=== PATIENT | male | born 1945 | race Asian ===

== ENCOUNTER → 2016-11-27 | Outpatient (CLI) | payer MEDICARE ==
[2016-11-27 17:24] LABS: Hepatitis B Surface Ag Index 0.07
[2016-11-27 17:29] LABS: Hepatitis B Core IgM Index 0.04
[2016-11-27 17:41] LABS: Hepatitis C Virus IgG Ab Negative (Negative); Hepatitis C Virus IgG Index 0.04
== END | disposition home or self-care (01) ==
LOC: LABWHC1 16:19
PROVIDERS: ATTEND Internal Medicine
DX: R74.8 Abnormal levels of other serum enzymes (principal)
CPT/HCPCS: 36415; 80074

== ENCOUNTER → 2017-05-22 | Outpatient (CLI) | payer MEDICARE ==
[2017-05-22 10:16] LABS: Basophils % (A) 1 %; CH 31.7; CHCM 33.5; Eosinophils # (A) 0.1 k/uL (0-0.7); Eosinophils % (A) 2 %; HCT 41.6 % (39.0-53.0); HDW 2.27; HGB 14.2 gm/dL (13.0-17.5); Luc % (Auto) 3; Lymphocytes # (A) 2.3 k/uL (1.0-4.8); Lymphocytes % (A) 40 %; MCH 32.5 pg (25.0-35.0); MCHC 34.2 g/dL (31.0-37.0); MCV 94.9 fL (80.0-100.0); Mean Platelet Volume 6.9; Monocytes # (A) 0.4 k/uL (0-1.0); Monocytes % (A) 7 %; Neutrophils # (A) 2.8 k/uL (1.3-7.7); Neutrophils % (A) 47 %; RBC 4.39 m/uL (4.30-5.90); RDW 12.9 % (11.5-15.5); WBC 5.9 k/uL (3.8-10.6); WBC (Perox) 6.01
[2017-05-22 10:46] LABS: ALT 61 U/L (21-72); AST 40 U/L (17-59); Alkaline Phosphatase 57 U/L (38-126); Anion Gap 11 mmol/L; Blood Urea Nitrogen 12 mg/dL (9-20); Calcium 9.1 mg/dL (8.4-10.2); Carbon Dioxide 26 mmol/L (22-30); Chloride 103 mmol/L (98-107); Cholesterol 283 mg/dL (<200); Glucose 94 mg/dL (74-99); HDL Cholesterol 51 mg/dL (40-60); Non-African American GFR(MDRD) >60 (>60 ml/min/1.73 sqM); Potassium 4.2 mmol/L (3.5-5.1); Sodium 140 mmol/L (137-145); Total Bilirubin 1.2 mg/dL (0.2-1.3); Total Protein 7.5 g/dL (6.3-8.2); Triglycerides 241 mg/dL (<150)
[2017-05-22 13:58] LABS: Hemoglobin A1C 6.3 % (4.2-6.1)
== END ==
LOC: LABWHC1 09:08
PROVIDERS: ATTEND Internal Medicine
DX: I10 Essential (primary) hypertension (principal); E78.2 Mixed hyperlipidemia; E03.9 Hypothyroidism, unspecified; R73.9 Hyperglycemia, unspecified
CPT/HCPCS: 36415; 80053; 80061; 83036; 84443; 85025

== ENCOUNTER → 2017-06-05 | Outpatient (CLI) | payer MEDICARE ==
--- NOTE | 2017-06-05 12:23 | XR ---
EXAMINATION TYPE: XR chest 2V DATE OF EXAM: 06/05/2017 COMPARISON: 08/24/2012 HISTORY: 71-year-old male with cough TECHNIQUE: Frontal and lateral views FINDINGS: The heart is borderline enlarged. Mild diffuse interstitial prominence. This is similar from prior ex am. No consolidation or pleural effusion. IMPRESSION: Borderline heart size. Chronic changes, possible chronic bronchitis/asthma. No acute process seen.
== END | disposition home or self-care (01) ==
LOC: RADXRMAIN 12:01
PROVIDERS: ATTEND Internal Medicine
DX: J98.4 Other disorders of lung (principal); R05 Cough
CPT/HCPCS: 71020

== ENCOUNTER → 2019-06-08 | Outpatient (CLI) | payer MEDICARE ==
--- NOTE | 2019-06-08 08:08 | US ---
EXAMINATION TYPE: US liver DATE OF EXAM: 06/08/2019 COMPARISON: US 2014 CLINICAL HISTORY: R94.5 Abnormal results of liver function studies. Elevated liver enzymes EXAM MEASUREMENTS: Liver Length: 13.2 cm Gallbladder Wall: 0.2 cm CBD: 0.6 cm Right Kidney: 10.6 x 4.5 x 4.1 cm Pancreas: visualized portions appear prominent, tail obscured by overlying midline bowel gas Liver: multiple small cystic areas throughout with largest measuring 1.0cm Gallbladder: 0.5cm mobile echogenic focus Evidence for sonographic Sheffield's sign: no CBD: Within normal limits for this patient age Right Kidney: Within normal limits IMPRESSION: Cholelithiasis without sonographic evidence of acute cholecystitis. Small simple appearin g hepatic cysts are also incidentally identified.
== END | disposition home or self-care (01) ==
LOC: RADUSWWP 06:54
PROVIDERS: ATTEND Internal Medicine
DX: R94.5 Abnormal results of liver function studies (principal); K80.80 Other cholelithiasis without obstruction
CPT/HCPCS: 76705

== ENCOUNTER → 2019-06-30 | Outpatient (CLI) | payer MEDICARE ==
[2019-06-30 23:45] LABS: ALT 81 U/L (10-49); AST 53 U/L (14-35)
[2019-07-01 01:34] LABS: Hepatitis C IgG Antibody Non-Reactive (Non-Reactive)
== END | disposition home or self-care (01) ==
LOC: LABWHC1 16:43
PROVIDERS: ATTEND Internal Medicine
DX: R94.5 Abnormal results of liver function studies (principal)
CPT/HCPCS: 36415; 84450; 84460; 86706; 86803

== ENCOUNTER 2019-08-10 10:03 | Day surgery (SDC) | payer MEDICARE ==
[2019-08-09 08:17] VITALS: BMI 22.6
[~2019-08-10 10:03] MED LIST: LACTATED RINGERS 1,000 ML IV SCH; LIDOCAINE 1% 20 ML VIAL (10MG/ML) FOR IV START INTRADERMA PRN
[2019-08-10 10:46] VITALS: TEMP 97
[2019-08-10] MEDS ORDERED: PROPOFOL 10 MG/ML 20 ML VIAL IV ONE (11:52)
[2019-08-10] MEDS ORDERED: LIDOCAINE 1% INJ 10MG/ML (20 ML MDV) ONE (11:52)
--- NOTE | 2019-08-10 12:06 | P.PCN ---
Date of Procedure: 08/10/19 Procedure(s) Performed: BRIEF HISTORY: Patient is a a 73-year-old pleasant male scheduled for an elective colonoscopy as a part of screening for colorectal rectal neoplasia. PROCEDURE PERFORMED: Colonoscopy. PREOPERATIVE DIAGNOSIS: Screening for colon cancer. IV sedation per Anesthesia. PROCEDURE: After informed consent was obtained, the patient, was brought into the endoscopy unit. IV sedation was administered by Anesthesia under continuous monitoring. Digital rectal examination was normal. Initially the Olympus CF-160 flexible video colonoscope was then inserted in the rectum, gradually advanced into the cecum without any difficulty. Careful examination was performed as the scope was gradually being withdrawn. Ileocecal valve and the appendiceal orifice were visualized and appeared normal. Prep was excellent. Mucosa of the cecum, ascending colon, transverse colon, descending colon, sigmoid colon, and rectum appeared normal. Retroflexion was performed in the rectum and no lesions were seen. The patient tolerated the procedure well. IMPRESSION: Normal-appearing colon from rectum to cecum with no evidence of colorectal neoplasia . RECOMMENDATIONS: Findings of this examination were discussed with the patient as well as his family. He was advised to have a repeat screening colonoscopy in 10 years.
[2019-08-10 12:24] VITALS: BP 98/65; PULSE 61; RESP 16
== END 2019-08-10 13:00 | disposition home or self-care (01) ==
LOC: ORWHC2ENDO 10:03
PROVIDERS: ATTEND Internal Medicine Gastroenterology
DX: Z12.11 Encounter for screening for malignant neoplasm of colon (principal); E78.5 Hyperlipidemia, unspecified; I10 Essential (primary) hypertension; E07.9 Disorder of thyroid, unspecified; Z79.899 Other long term (current) drug therapy; Z79.82 Long term (current) use of aspirin; Z79.890 Hormone replacement therapy
CPT/HCPCS: J2001; J2704; G0121

== ENCOUNTER → 2019-09-30 | Outpatient (CLI) | payer MEDICARE ==
--- NOTE | 2019-09-30 07:55 | US ---
EXAMINATION TYPE: US abdomen limited DATE OF EXAM: 09/30/2019 COMPARISON: US CLINICAL HISTORY: R94.5 Elevated liver enzymes, High cholesterol per patient. EXAM MEASUREMENTS: Liver Length: 11.8 cm Gallbladder Wall: 0.1 cm CBD: 0.5 cm Right Kidney: 9.5 x 4.8 x 3.9 cm Pancreas: hyperechoic Liver: fatty as is hyperechoic to right renal cortex, multiple small cysts seen in liver with larges t noted in left lobe= 0.8 x 0.7 x 0.7cm Gallbladder: shadowing stone =0.7 x 0.6 x 0.4cm is seen in fundus Evidence for sonographic Sheffield's sign: no CBD: wnl Right Kidney: No hydronephrosis or masses seen IMPRESSION: 1. Fatty liver. 2. Hepatic cyst. 3. Cholelithiasis.
== END | disposition home or self-care (01) ==
LOC: RADUSWWP 06:58
PROVIDERS: ATTEND Internal Medicine
DX: K76.0 Fatty (change of) liver, not elsewhere classified (principal); K76.89 Other specified diseases of liver; K80.20 Calculus of gallbladder without cholecystitis without obstruction
CPT/HCPCS: 76705

== ENCOUNTER → 2019-10-18 | Outpatient (CLI) | payer MEDICARE ==
[2019-10-18 12:44] LABS: Basophils % (A) 1 %; Eosinophils # (A) 0.2 k/uL (0-0.7); Eosinophils % (A) 3 %; HCT 41.2 % (39.0-53.0); HGB 13.5 gm/dL (13.0-17.5); Lymphocytes # (A) 2.6 k/uL (1.0-4.8); Lymphocytes % (A) 41 %; MCH 32.7 pg (25.0-35.0); MCHC 32.8 g/dL (31.0-37.0); MCV 99.5 fL (80.0-100.0); Mean Platelet Volume 7.6; Monocytes # (A) 0.5 k/uL (0-1.0); Monocytes % (A) 8 %; Neutrophils # (A) 2.9 k/uL (1.3-7.7); Neutrophils % (A) 45 %; Platelet Count 242 k/uL (150-450); RBC 4.15 m/uL (4.30-5.90); RDW 13.1 % (11.5-15.5); WBC 6.4 k/uL (3.8-10.6)
[2019-10-18 15:42] LABS: Alpha Fetoprotein, Tumor Mkr 8.8 ng/mL (0.0-7.9)
[2019-10-18 16:14] LABS: % Iron Saturation 37.59 (15.00-50.00); African American GFR (CKD) 103.4 (60.0-200.0); Albumin 4.1 g/dL (3.80-4.90); Albumin/Globulin Ratio 1.58 (1.60-3.17); Anion Gap 6.3 mmol/L (4.00-12.00); BUN/Creat Ratio 16.25 Ratio (12.00-20.00); Calcium 9.2 mg/dL (8.7-10.3); Carbon Dioxide 28.7 mmol/L (21.6-31.8); Ferritin 602.6 ng/mL (22.0-322.0); Globulin 2.6 g/dL (1.6-3.3); Non-African American GFR(CKD) 89.2 (60.0-200.0); Potassium 4.1 mmol/L (3.5-5.5); Total Bilirubin 0.5 mg/dL (0.3-1.2); Total Protein 6.7 g/dL (6.2-8.2)
[2019-10-18 17:10] LABS: Hepatitis A Antibody IgM Non-Reactive (Non-Reactive); Hepatitis B Core IgM Non-Reactive (Non-Reactive); Hepatitis B Surface Antigen Non-Reactive (Non-Reactive); Hepatitis C IgG Antibody Non-Reactive (Non-Reactive)
[2019-10-18 19:57] LABS: Protein, Total 6.9 g/dL (6.2-8.2)
[2019-10-19 11:46] LABS: Liver/Kidney Microsome Antibod 1.7 UNITS (<=20)
[2019-10-19 12:04] LABS: Ceruloplasmin 22.2 mg/dL (20.0-60.0)
[2019-10-20 09:23] LABS: Albumin 3.88 g/dL (3.80-4.90); Gamma Globulin 1.37 g/dL (0.70-1.50)
== END | disposition home or self-care (01) ==
LOC: LABWHC1 11:43
PROVIDERS: ATTEND Nurse Practitioner
DX: R74.8 Abnormal levels of other serum enzymes (principal)
CPT/HCPCS: 36415; 80053; 80074; 81596; 82103; 82105; 82390; 82728; 83516; 83540; 83550; 84165; 85025; 85610; 86038; 86376

== ENCOUNTER 2019-11-11 08:43 | Day surgery (SDC) | payer MEDICARE ==
[2019-11-11 09:18] LABS: Mean Platelet Volume 7.5; Platelet Count 200 k/uL (150-450)
[2019-11-11] MEDS ORDERED: ALPRAZolam 0.25 MG TAB PO STA (09:23)
[2019-11-11 09:39] LABS: Prothrombin Time 10.8 sec (9.0-12.0)
[2019-11-11 10:16] VITALS: TEMP 98.1
[2019-11-11] MEDS ORDERED: HYDROmorphone 1 MG/ML 1 ML SYRINGE IVP STA (10:54)
--- NOTE | 2019-11-11 11:41 | CT ---
EXAMINATION TYPE: CT biopsy liver DATE OF EXAM: 11/11/2019 COMPARISON: NONE HISTORY: Elevated liver enzymes CT DLP: 621mGycm The procedure was explained to the patient. The risks, complications, benefits, and alternatives wer e discussed and any questions were answered. Informed consent was obtained. Patient was placed supi ne on the CT table and prepped and draped in the usual sterile fashion. All elements of maximal barrier and sterile technique utilized. Utilizing CT guidance, an 18 gauge core biopsy needle access into the right lobe of the liver was ac hieved and a single 18 gauge core sample was obtained. The patient was stable throughout the procedu re and remained stable upon discharge. IMPRESSION: 1. Successful 18 gauge core biopsy of the liver.
[2019-11-11 12:03] VITALS: RESP 16
[2019-11-11 13:19] VITALS: BP 116/67
[2019-11-11 13:55] VITALS: PULSE 58
== END 2019-11-11 14:12 | disposition home or self-care (01) ==
LOC: RADPROMAIN 08:43
PROVIDERS: ATTEND Internal Medicine Gastroenterology
DX: K75.81 Nonalcoholic steatohepatitis (NASH) (principal)
CPT/HCPCS: 36415; 47000; 77012; 85049; 85610; 88307; 88313